=== PATIENT | male | born 1985 | race Caucasian/White ===

== ENCOUNTER 2022-09-04 13:32 | Emergency (ER) | payer OTHER, SELFPAY ==
[2022-09-04 14:47] VITALS: BP 145/96; PULSE 82; RESP 16; TEMP 36.1; O2SAT 98; BMI 21.7
--- NOTE | 2022-09-04 14:48 | ED.SKABFB ---
HPI - Skin/Abscess/Foreign Bdy General Chief complaint: General Medical <XAVIER Pride - Last Filed: 09/04/22 14:55> Stated complaint: bugs are crawling out of skin <XAVIER Pride - Last Filed: 09/04/22 14:55> Time Seen by Provider: 09/04/22 17:58 <XAVIER Pride - Last Filed: 09/04/22 14:55> Source: patient, family and old records reviewed <Olegario Griffin - Last Filed: 09/04/22 18:28> Limitations: no limitations <Olegario Griffin - Last Filed: 09/04/22 18:28> History of Present Illness HPI narrative: 37-year-old male with longstanding history of over 8 use disorder presents to the ER complaining that he feels like bugs are crawling on his skin and coming out of his mouth. Case discussed with mother at length patient does sniff heroin and has been on methadone and Suboxone in the past. Patient has also been to detox also in the past. Mother states the patient seemed to have lost more more we recently patient denies any history of HIV or hepatitis. Patient does state decreased p.o. intake recently. Patient states can use up to 15-20 minutes exam heroin a day. Mother states patient has also used cocaine in the past. Patient rents a room in . Patient also states in the past methadone has helped him more than Suboxone. At this time patient denies suicidal ideation mother states [facility] as to the was asking [place] is still alive. <Olgeario Griffin - Last Filed: 09/04/22 18:28> Related Data Allergies/Adverse reactions: Allergies Allergy/AdvReac Type Severity Reaction Status Date / Time No Known Allergies Allergy Verified 09/04/22 14:53 <XAVIER Pride - Last Filed: 09/04/22 14:55> Review of Systems Review of Systems: General: No fever, positive chills Ophthalmology: No vision changes ENT: No sore throat, no ear pain Cardiovascular, no chest pain, no peripheral edema no shortness of breath Respiratory: No dyspnea, no sputum production, no cough Muscle skeletal: Positive malaise, no back pain, no neck pain, no extremity pain GI: No abdominal pain: Positive nausea no vomiting, no diarrhea Psychiatric: No depression, no suicidal ideation, no homicidal ideation Skin: No rash <Olegario Griffin - Last Filed: 09/04/22 18:28> FOR[facility]LY [facility] Past Medical History Attestation statement: The following information was validated with the patient. <Olegario Griffin - Last Filed: 09/04/22 18:28> Source: obtained from family <Olegario Griffin - Last Filed: 09/04/22 18:28> Social History Social History: Social History Advance Directives: No Advance Directives Information Provided: No <XAVIER Pride - Last Filed: 09/04/22 14:55> Physical Exam Vital Signs: Vital Signs: Last Vital Signs Temp 97 F 09/04/22 14:47 Pulse 82 09/04/22 14:47 Resp 16 09/04/22 14:47 BP 145/96 H 09/04/22 14:47 Pulse Ox 98 09/04/22 14:47 O2 Del Method Room Air 09/04/22 14:47 BMI result Body Mass Index 21.7 <XAVIER Pride - Last Filed: 09/04/22 14:55> Vital Signs: Last Vital Signs Temp 97 F 09/04/22 14:47 Pulse 82 09/04/22 14:47 Resp 16 09/04/22 14:47 BP 145/96 H 09/04/22 14:47 Pulse Ox 98 09/04/22 14:47 O2 Del Method Room Air 09/04/22 14:47 BMI result Body Mass Index 21.7 <Olegario Griffin - Last Filed: 09/04/22 18:28> Vital Signs: Last Vital Signs Temp 97 F 09/04/22 14:47 Pulse 82 09/04/22 14:47 Resp 16 09/04/22 14:47 BP 145/96 H 09/04/22 14:47 Pulse Ox 98 09/04/22 14:47 O2 Del Method Room Air 09/04/22 14:47 BMI result Body Mass Index 21.7 <Brock Rosado - Last Filed: 09/04/22 20:02> General appearance: Patient is cachectic in appearance, slightly anxious but cooperative Skin: Warm, dry, no rash Eyes: PERRL, EOMI ENT: Oropharynx is clear mucosa is dry Neck: Soft supple full range of motion Pulmonary: Breath sounds are diminished but otherwise clear no accessory muscle use Cardiovascular: Regular rate and rhythm no murmurs and rubs Abdomen: Abdomen flat soft no rebound or guarding positive bowel sounds Extremities: No deformity, nontender, no peripheral edema noted, bilateral calves nontender Neuro: Patient is alert and oriented no focal deficit Psych: Withdrawn <Olegario Griffin - Last Filed: 09/04/22 18:28> Course Course Course Narrative: RME: 37yo M w/no sig pmhx c/o bugs crawling all over him, hair, nose, fingers and in his mouth since yesterday. admits sx are intermittent. Admits to using heroin, denies other drugs Nothing noted on exam, no evidence of scabies, no rash Labs, UA, CARLOS, CARE consult ordered Full HPI, ROS and PE to be performed by primary ED provider. <XAVIER Pride - Last Filed: 09/04/22 14:55> Reevaluation(s) Reevaluation #1: Patient received in sign-out pending care team evaluation and disposition. Likely plan for detox. The patient is here voluntarily. He is requesting discharge at this time. He states that he has outpatient resources and his mother works for [employer]. The patient is awake, and oriented to person place and time. He is not a section is here voluntarily. I will discharge the patient per his request <Brock Rosado - Last Filed: 09/04/22 20:02> Time: 20:01 <Brock Rosado - Last Filed: 09/04/22 20:02> Medical Decision Making Medical Decision Making MDM Narrative: Opiate use disorder Visual hallucinations Opiate withdrawal Depression Malnutrition 37-year-old male with a longstanding history of opiate use disorder presents with mother with increased agitation and visual hallucinations of bugs crawling out of his skin. Patient has had some nausea denies vomiting. Last used heroin this morning. Patient states he only says heroin. Denies history of HIV hepatitis. Patient does admit to decreased p.o. intake. Care team is aware of patient and will evaluate CBC CMP U tox ETOH level Patient signed out to Brock Rosado PA-C <Olegario Griffin - Last Filed: 09/04/22 18:28> Lab Data Result Diagrams: 09/04/22 18:48 09/04/22 18:48 <XAVIER Pride - Last Filed: 09/04/22 14:55> Labs: Lab Results 09/04/22 09/04/22 09/04/22 Range/Units 18:48 18:48 18:48 WBC 5.6 (4.8-10.8) X10*3/uL RBC 4.33 L (4.60-5.80) X10*6/uL Hgb 13.1 L (14.0-18.0) g/dl Hct 37.9 L (42.0-52.0) % MCV 87.5 (80.0-98.0) fL MCH 30.3 (27.0-33.0) pg MCHC 34.6 (31.0-36.0) g/dl RDW 13.2 (11.0-16.0) % Plt Count 287 (160-400) X10*3/uL MPV 9.1 L (9.4-12.4) fL Immature Gran % (Auto) 0.2 (0.0-0.4) % Neut % (Auto) 42.2 L (45-73) % Lymph % (Auto) 38.2 (20-40) % Hartley % (Auto) 11.1 H (2-11) % Eos % (Auto) 7.0 H (0-4) % Baso % (Auto) 1.3 (0-2) % Lymph # (Auto) 2.1 (1.2-4.9) X10*3/uL Hartley # (Auto) 0.6 (0.1-1.2) X10*3/uL Eos # (Auto) 0.4 (0.0-0.4) X10*3/uL Baso # (Auto) 0.1 (0.0-0.2) X10*3/uL Abs Immat Gran (auto) 0.01 (0.00-0.03) X10*3/uL Absolute Neuts (auto) 2.4 (2.0-8.3) x10*3/uL Absolute Nucleated RBC 0.000 (0.0-0.012) X10*3/uL Nucleated RBC % (auto) 0.0 (0.0-0.2) /100WBC Sodium 140 (135-145) mmol/L Potassium 3.9 (3.3-5.1) mmol/L Chloride 103 (96-108) mmol/L Carbon Dioxide 31 H (22-29) mmol/L Anion Gap 10 L (12-20) BUN 11 (9-16) mg/dL Creatinine 0.75 (0.5-1.4) mg/dL Estim Creat Clear Calc 114.5 Estimated GFR > 60 Random Glucose 124 H (60-115) mg/dL Calcium 9.6 (8.4-10.2) mg/dL Magnesium 2.3 (1.6-2.6) mg/dL Total Bilirubin 0.6 (0.0-1.0) mg/dL Direct Bilirubin 0.2 (0.0-0.5) mg/dL AST 14 (5-37) U/L ALT 6 (0-40) U/L Alkaline Phosphatase 52 (39-117) U/L Total Protein 6.1 L (6.5-8.0) g/dL Albumin 4.2 (3.5-5.0) g/dL Ethyl Alcohol < 10 mg/dL <XAVIER Pride - Last Filed: 09/04/22 14:55> Lab Results 09/04/22 09/04/22 09/04/22 Range/Units 18:48 18:48 18:48 WBC 5.6 (4.8-10.8) X10*3/uL RBC 4.33 L (4.60-5.80) X10*6/uL Hgb 13.1 L (14.0-18.0) g/dl Hct 37.9 L (42.0-52.0) % MCV 87.5 (80.0-98.0) fL MCH 30.3 (27.0-33.0) pg MCHC 34.6 (31.0-36.0) g/dl RDW 13.2 (11.0-16.0) % Plt Count 287 (160-400) X10*3/uL MPV 9.1 L (9.4-12.4) fL Immature Gran % (Auto) 0.2 (0.0-0.4) % Neut % (Auto) 42.2 L (45-73) % Lymph % (Auto) 38.2 (20-40) % Hartley % (Auto) 11.1 H (2-11) % Eos % (Auto) 7.0 H (0-4) % Baso % (Auto) 1.3 (0-2) % Lymph # (Auto) 2.1 (1.2-4.9) X10*3/uL Hartley # (Auto) 0.6 (0.1-1.2) X10*3/uL Eos # (Auto) 0.4 (0.0-0.4) X10*3/uL Baso # (Auto) 0.1 (0.0-0.2) X10*3/uL Abs Immat Gran (auto) 0.01 (0.00-0.03) X10*3/uL Absolute Neuts (auto) 2.4 (2.0-8.3) x10*3/uL Absolute Nucleated RBC 0.000 (0.0-0.012) X10*3/uL Nucleated RBC % (auto) 0.0 (0.0-0.2) /100WBC Sodium 140 (135-145) mmol/L Potassium 3.9 (3.3-5.1) mmol/L Chloride 103 (96-108) mmol/L Carbon Dioxide 31 H (22-29) mmol/L Anion Gap 10 L (12-20) BUN 11 (9-16) mg/dL Creatinine 0.75 (0.5-1.4) mg/dL Estim Creat Clear Calc 114.5 Estimated GFR > 60 Random Glucose 124 H (60-115) mg/dL Calcium 9.6 (8.4-10.2) mg/dL Magnesium 2.3 (1.6-2.6) mg/dL Total Bilirubin 0.6 (0.0-1.0) mg/dL Direct Bilirubin 0.2 (0.0-0.5) mg/dL AST 14 (5-37) U/L ALT 6 (0-40) U/L Alkaline Phosphatase 52 (39-117) U/L Total Protein 6.1 L (6.5-8.0) g/dL Albumin 4.2 (3.5-5.0) g/dL Ethyl Alcohol < 10 mg/dL <Olegario Griffin - Last Filed: 09/04/22 18:28> Lab Results 09/04/22 09/04/22 09/04/22 Range/Units 18:48 18:48 18:48 WBC 5.6 (4.8-10.8) X10*3/uL RBC 4.33 L (4.60-5.80) X10*6/uL Hgb 13.1 L (14.0-18.0) g/dl Hct 37.9 L (42.0-52.0) % MCV 87.5 (80.0-98.0) fL MCH 30.3 (27.0-33.0) pg MCHC 34.6 (31.0-36.0) g/dl RDW 13.2 (11.0-16.0) % Plt Count 287 (160-400) X10*3/uL MPV 9.1 L (9.4-12.4) fL Immature Gran % (Auto) 0.2 (0.0-0.4) % Neut % (Auto) 42.2 L (45-73) % Lymph % (Auto) 38.2 (20-40) % Hartley % (Auto) 11.1 H (2-11) % Eos % (Auto) 7.0 H (0-4) % Baso % (Auto) 1.3 (0-2) % Lymph # (Auto) 2.1 (1.2-4.9) X10*3/uL Hartley # (Auto) 0.6 (0.1-1.2) X10*3/uL Eos # (Auto) 0.4 (0.0-0.4) X10*3/uL Baso # (Auto) 0.1 (0.0-0.2) X10*3/uL Abs Immat Gran (auto) 0.01 (0.00-0.03) X10*3/uL Absolute Neuts (auto) 2.4 (2.0-8.3) x10*3/uL Absolute Nucleated RBC 0.000 (0.0-0.012) X10*3/uL Nucleated RBC % (auto) 0.0 (0.0-0.2) /100WBC Sodium 140 (135-145) mmol/L Potassium 3.9 (3.3-5.1) mmol/L Chloride 103 (96-108) mmol/L Carbon Dioxide 31 H (22-29) mmol/L Anion Gap 10 L (12-20) BUN 11 (9-16) mg/dL Creatinine 0.75 (0.5-1.4) mg/dL Estim Creat Clear Calc 114.5 Estimated GFR > 60 Random Glucose 124 H (60-115) mg/dL Calcium 9.6 (8.4-10.2) mg/dL Magnesium 2.3 (1.6-2.6) mg/dL Total Bilirubin 0.6 (0.0-1.0) mg/dL Direct Bilirubin 0.2 (0.0-0.5) mg/dL AST 14 (5-37) U/L ALT 6 (0-40) U/L Alkaline Phosphatase 52 (39-117) U/L Total Protein 6.1 L (6.5-8.0) g/dL Albumin 4.2 (3.5-5.0) g/dL Ethyl Alcohol < 10 mg/dL <Brock Rosado - Last Filed: 09/04/22 20:02> Discharge Plan Discharge Clinical Impression: Opiate use, Hallucination, visual <XAVIER Pride - Last Filed: 09/04/22 14:55> Patient Disposition: Home, Self-Care <XAVIER Pride - Last Filed: 09/04/22 14:55> Instructions: Opioid Use Disorder (ED) <XAVIER Pride - Last Filed: 09/04/22 14:55> Additional Instructions: Return for any new or worsening concerns. <XAVIER Pride - Last Filed: 09/04/22 14:55>
--- OUTSIDE RECORDS SUMMARY | 2022-09-04 17:16 | XMS_ITS | Continuity of Care Document ---
Author Name Unknown Organization [facility] ter Address [address] [place] [id number] Care Team Providers Care Wedding Florist Name Role Phone Not on Staff, PCP Primary Care Physician Unavail able Encounter [facility] Date(s): 04/30/19 - 05/01/[address] [id number]- [facility] Encounter Diagnosis Depression(Final) - 05/01/19 Discharge Disposition: A-D/C Home Attending Physician: Duke Jalloh MD Admitting Physician: Duke Jalloh MD Referring Physician: Not on Staff, Referring MD Allergies, Adverse Reactions, Alerts Substance Reaction Severity Status NKA Active Vital Signs Most recent to oldest [Reference Range]: 1 2 Height 167 cm (05/01/19 6:36 AM) 167 cm (04/30/19 9:54 PM) Weight 63.5 kg (05/01/19 6:36 AM) 63.5 kg (04/30/19 9:54 PM) Oxygen Saturation [94-100 %] 100 % (05/01/19 6:36 AM) 99 % (04/30/19 9:25 PM) Pulse Rate [55-90 bpm] 101 bpm *H* (05/01/19 6:36 AM) 85 bpm (04/30/19 9:25 PM) Body Mass Index [18.5-24.99] 22.77 (05/01/19 6:36 AM) Blood Pressure [90-138/55-84 mm Hg] 117/ 63mm Hg (05/01/19 6:36 AM) 145/95mm Hg *H* (04/30/19 9:25 PM) Respiratory Rate [16-30 br/min] 16 br/mi n (05/01/19 6:36 AM) 16 br/min (04/30/19 9:25 PM) Temperature [96.8-100.4 DegF] 97.7 DegF (05/01/19 6:36 AM) 98.0 DegF (04/30/19 9:25 PM) Mode of Delivery (Oxygen) Room air (05/01/19 6:36 AM) Room air (04/30/19 9:25 PM) Blood pressure sites Arm, right (05/01/19 6:36 AM) Arm, right (04/30/19 9:25 PM) Temperature Route Oral (05/01/19 6:36 AM) Oral (04/30/19 9:25 PM) Dry Weight 63.5 kg (05/01/19 6:36 AM) 63.5 kg (04/30/19 9:54 PM)
[2022-09-04 18:52] LABS: MANUAL DIFF FLAG NO
[2022-09-04 19:03] LABS: Basophils Absolute Auto 0.1 X10*3/uL (0.0-0.2); Basophils Percent Auto 1.3 % (0-2); Eosinophils Absolute Auto 0.4 X10*3/uL (0.0-0.4); Hematocrit 37.9 % (42.0-52.0); Hemoglobin 13.1 g/dl (14.0-18.0); Imm Gran Abs Auto 0.01 X10*3/uL (0.00-0.03); Imm Gran Pct Auto 0.2 % (0.0-0.4); Lymphocytes Absolute Auto 2.1 X10*3/uL (1.2-4.9); Lymphocytes Percent Auto 38.2 % (20-40); Mean Corpuscular HGB Conc 34.6 g/dl (31.0-36.0); Mean Corpuscular Hemoglobin 30.3 pg (27.0-33.0); Mean Corpuscular Volume 87.5 fL (80.0-98.0); Mean Platelet Volume 9.1 fL (9.4-12.4); Monocytes Absolute Auto 0.6 X10*3/uL (0.1-1.2); Monocytes Percent Auto 11.1 % (2-11); Neutrophils Absolute Auto 2.4 x10*3/uL (2.0-8.3); Neutrophils Percent Auto 42.2 % (45-73); Platelet Count 287 X10*3/uL (160-400); Red Blood Count 4.33 X10*6/uL (4.60-5.80); Red Cell Distribution Width 13.2 % (11.0-16.0); White Blood Count 5.6 X10*3/uL (4.8-10.8)
[2022-09-04 19:08] LABS: Alanine Aminotransferase 6 U/L (0-40); Albumin Level 4.2 g/dL (3.5-5.0); Alkaline Phosphatase 52 U/L (39-117); Anion Gap 10 (12-20); Aspartate Amino Transferase 14 U/L (5-37); Bilirubin Direct 0.2 mg/dL (0.0-0.5); Bilirubin Total 0.6 mg/dL (0.0-1.0); Blood Urea Nitrogen 11 mg/dL (9-16); Calcium 9.6 mg/dL (8.4-10.2); Carbon Dioxide 31 mmol/L (22-29); Chloride 103 mmol/L (96-108); Creatinine Clr Calc Pharmacy 114.5; Estimated Glomerular Filt Rate > 60; Glucose Random 124 mg/dL (60-115); Magnesium 2.3 mg/dL (1.6-2.6); Potassium 3.9 mmol/L (3.3-5.1); Sodium 140 mmol/L (135-145); Total Protein 6.1 g/dL (6.5-8.0)
[2022-09-04 19:09] LABS: Ethanol < 10 mg/dL
[2022-09-04 20:00] VITALS: BP 132/78; PULSE 97; RESP 18; TEMP 37.1; O2SAT 99
== END 2022-09-04 20:33 | disposition home or self-care (01) ==
PROVIDERS: Physician Assistant; Emergency Provider Emergency Medicine
DX: F11.951 Opioid use, unspecified with opioid-induced psychotic disorder with hallucinations (principal); R44.1 Visual hallucinations; R45.1 Restlessness and agitation; B20 Human immunodeficiency virus [HIV] disease
CPT/HCPCS: 36415; 80048; 80076; 82077; 83735; 85025; 99283

== ENCOUNTER 2022-09-17 08:19 | Emergency (ER) | payer OTHER, SELFPAY ==
[2022-09-17 08:45] VITALS: BP 140/94; PULSE 92; RESP 16; TEMP 36.7; O2SAT 98; BMI 21.0
[2022-09-17 08:56] VITALS: PULSE 91; RESP 16; O2SAT 97
--- NOTE | 2022-09-17 09:00 | PC.NURSE ---
Pt on stretcher, airway open and patent, no obvious signs of distress, no difficulty/labored breathing, equal chest rise and fall. Pt a&ox4, skin normal for ethnicity, warm, and dry. Pt complaining of itchiness in feet and head. Pt reports that he was just here about a week ago for the same complaint, but nothing was found. Pt reports that he bought lice shampoo last night and when he washed his hair, he saw little black things on the bottom of the tub.
--- NOTE | 2022-09-17 09:08 | ED.GENADULT ---
HPI - General Adult General Chief complaint: General Medical Stated complaint: Lice? Time Seen by Provider: 09/17/22 08:34 Source: patient, RN notes reviewed and old records reviewed Mode of arrival: ambulatory History of Present Illness HPI narrative: 37-year-old male with a past medical history of opiate abuse presenting to the ED complaining of suspected lice/bugs in hair, fingernails, and toes/feet x few weeks. Patient reports he is pruritic. Admits was seen at the ED recently for similar symptoms which was suspected to be secondary to opiate use. Last used heroin yesterday per patient. Denies new exposures, recent travel, fever/chills, SOB/CP, SI/HI, auditory/visual hallucinations Onset (ago): week(s) Related Data Previous Rx's Medication Instructions Recorded permethrin 1 % topical liquid 30 ml topical ONCE #59 mL 09/17/22 (Lice Killing (permethrin)) permethrin 5 % topical cream 1 appl topical Q14D 2 doses #60 09/17/22 grams Allergies Allergy/AdvReac Type Severity Reaction Status Date / Time No Known Allergies Allergy Verified 09/17/22 08:44 Review of Systems Review of Systems: Constitutional: No Fever, No Chills, No Fatigue, No Malaise ENT/Mouth: o Ear Pain, No sore throat, No Rhinorrhea, No Swallowing Difficulty Eyes: No Eye Pain, No Swelling, No Redness, No Vision Changes Cardiovascular: No Chest Pain, No SOB Respiratory: No Cough, No Sputum, No Dyspnea Gastrointestinal: No Nausea, No Vomiting, No Abdominal pain Musculoskeletal: No joint pain, No Myalgias, No Joint Swelling Skin: + Skin Lesions, No rash Neuro: No Weakness, No Numbness, No Paresthesias, No Headache Psych: No Anxiety/Panic, No Depression, No SI/HI/AH/VH, No Social Issues Yes all other systems are reviewed and are negative Constitutional: Constitutional: Reports as per [facility] Past Medical History Attestation statement: The following information was validated with the patient. Source: old records reviewed Social History Social History Alcohol intake: never Smoked in Last 30 Days: Yes Use of substances other than those prescribed or required for medical reasons: Yes Substance Use Type: Crack/Cocaine, Heroin and Marijuana Substance Use Frequency: Chronic Longstanding Last Used Substance: Hours (ago) Advance Directives: No Physical Exam ED Vital Signs: Vital Signs - 24 hr 09/17/22 08:45 09/17/22 08:56 Temperature 98.0 F Pulse Rate 92 91 Respiratory Rate 16 16 Blood Pressure 140/94 H Pulse Oximetry 98 97 Oxygen Delivery Method Room Air Room Air BMI result Body Mass Index 21.0 Const General: cooperative, healthy appearing, no acute distress, alert and awake Orientation/consciousness: patient oriented x3 Limitations: no limitations HENMT Head: Yes normal to inspection and Yes atraumatic Ears: hearing grossly normal bilaterally General nose exam: Normal external nose present Face and sinus: Yes normal facial exam Eyes General: appearance normal, both eyes and all related structures EOM: EOMs intact bilaterally Neck Neck: Yes normal visual inspection and Yes no meningeal signs Resp Effort & Inspection: normal respiratory effort and no respiratory distress Cardio Rate: regular rate GI Inspection: Yes normal to inspection Skin Other: No appreciable lice/nits to hair. No appreciable rash/excoriations. No petechiae or mucous membrane involvement. + bilateral plantar aspect feet with small darkened circles. No burrowing, no pustules, no scaling General skin exam: no rashes or lesions noted Lesions: no lesions Rashes: no rashes Wounds: no wounds Hair: normal Nails: normal Neuro General: patient oriented x3, gait normal, tone normal, moves all extremities, no meningeal signs, no focal motor deficits and CN's II-XI intact bilaterally Gait exam (Neuro): Normal gait present Extrem General: Yes normal to inspection Medical Decision Making Medical Decision Making MDM Narrative: 37-year-old male with a past medical history of opiate abuse presenting to the ED complaining of suspected lice/bugs in hair, fingernails, and toes/feet x few weeks. On exam vital signs stable, NAD, nontoxic appearing, no appreciable rashes/lice or burrowing. No mucous membrane or palm involvement. Bilateral soles with darkened areas, no scaling. Concern for opiate induced pruritis/hallucinations. Low suspicion for life/scabies, no evidence of tinea, SJS or TENS Plan: Will treat with permethrin and dermatology consult Please refer to course for remaining clinical decision making, interpretation of labs/imaging results, and discussions with consultants and/or family members. Differential Diagnosis Differential Diagnoses: The differential diagnosis associated with the presentation includes As above Lab Data MDM Lab Attestation statement: I reviewed the patient's lab results. Radiology Impression Discussion of test interpretation with radiology: I have reviewed the radiologist's reading. External Record Review External record reviewed: Inpatient record, Office record, Outpatient record, Prior outpatient labs, Prior outpatient radiology, Primary care record and Outside ED record Tests considered The following testing was considered but not selected: As above Discharge Plan Discharge Clinical Impression: Itching Patient Disposition: Home, Self-Care Instructions: Itchy Skin (ED) Additional Instructions: Permethrin will treat possible lice or scabies. Please apply as prescribed He need to follow-up with your doctor in dermatology Your symptoms are likely related to your drug use, avoid drug and alcohol use If symptoms persist or worsen return to the ED Prescriptions: New permethrin 5 % cream 1 appl topical Q14D Qty: 60 0RF Rx Instructions: apply second treatment 14 days after first treatment if live lice remain Lice Killing (permethrin) 1 % liquid 30 ml topical ONCE Qty: 59 0RF Rx Instructions: Prior to application, wash hair with conditioner-free shampoo; rinse with water and towel dry. Apply a sufficient amount of lotion or cream rinse to saturate the hair and scalp (especially behind the ears and nape of neck). Leave on hair for 10 minutes (but no longer), then rinse off with warm water; remove remaining nits with nit comb. A single application is generally sufficient; however, may repeat 7 days after first treatment if lice or nits are still present Referrals: Fely Carmona PA [Physician [employer] Supervisor] - Vinod Ochoa MD [Physician] - Miguel Garnica MD [Physician] - Judah Wynne FNP-JAXSON [Nurse Practitioner] - Brigitte Landaverde PA-C [Physician [employer] Treatment [employer] Supervisor] - Physician,None [Primary Care Provider] - Stand Alone Forms: Work/School Release Interventions: ED Discharge Assessment Last Done: 09/17/22 10:09 Discharge Date/Time: 09/17/22 10:10
== END 2022-09-17 10:10 | disposition home or self-care (01) ==
PROVIDERS: Emergency Provider Emergency Medicine
DX: B85.2 Pediculosis, unspecified (principal)
CPT/HCPCS: 99283; 99284

== ENCOUNTER 2022-10-21 04:19 | Emergency (ER) | payer OTHER, SELFPAY ==
[2022-10-21 04:28] VITALS: BP 162/90; PULSE 114; RESP 20; O2SAT 98; BMI 21.0
--- NOTE | 2022-10-21 04:32 | ED_ITS ---
HPI - Skin/Abscess/Foreign Bdy General Chief complaint: Skin/Abscess/Foreign Body Stated complaint: chills Time Seen by Provider: 10/21/22 04:29 Source: patient Mode of arrival: ambulatory Limitations: no limitations History of Present Illness HPI narrative: Patient complaining of bugs on his body for last few months been here multiple times for same numbers were seen on previous visits patient seems to be anxious unhealthy any itching all over the body has taken a course of permethrin on 09/17/2022 Related Data Previous Rx's Medication Instructions Recorded permethrin 1 % topical liquid 30 ml topical ONCE #59 mL 09/17/22 (Lice Killing (permethrin)) permethrin 5 % topical cream 1 appl topical Q14D 2 doses #60 09/17/22 grams diphenhydramine HCl 25 mg capsule 25 mg PO TID PRN itching #14 caps 10/21/22 (Benadryl) Allergies Allergy/AdvReac Type Severity Reaction Status Date / Time No Known Allergies Allergy Verified 09/17/22 08:44 Review of Systems Review of Systems: Yes all other systems are reviewed and are negative [facility] Social History Social History Alcohol intake: never Substance Use Type: Crack/Cocaine, Heroin and Marijuana Physical Exam Vital Signs: Vital Signs: Last Vital Signs Pulse 114 H 10/21/22 04:28 Resp 20 10/21/22 04:28 BP 162/90 H 10/21/22 04:28 Pulse Ox 98 10/21/22 04:28 O2 Del Method Room Air 10/21/22 04:28 BMI result Body Mass Index 21.0 Appearance: Alert. Oriented X3. No acute distress. Anxious unkept condition Eyes: PERRLA, No Nystagmus ENT: Pharynx normal. Oral Mucosa moist Neck: Normal inspection. Neck supple. CVS: Normal heart rate and rhythm. Pulses normal. Respiratory: No respiratory distress. Equal air entry bilateral, Abdomen: Soft and nontender. Skin: Skin warm and dry. Normal skin color. Normal skin turgor. No signs of scabies seen no bugs were seen Extremities: No lower extremity edema. No calf tenderness Neuro: Oriented X 3. Medical Decision Making Medical Decision Making MDM Narrative: Patient with anxiety no signs of infestation seen patient reassured and was given a prescription of Benadryl advised to follow with ID if needed Discharge Plan Discharge Clinical Impression: Anxiety, Itching Patient Disposition: Home, Self-Care Instructions: Anxiety (ED), Itchy Skin (ED) Additional Instructions: Follow-up with infectious disease specialist/PCP Take Benadryl 1 tablet every 6-8 hours for itching Prescriptions: New diphenhydramine HCl [Benadryl] 25 mg capsule 25 mg PO TID PRN (Reason: itching) Qty: 14 0RF No Action permethrin 5 % cream 1 appl topical Q14D Qty: 60 0RF Rx Instructions: apply second treatment 14 days after first treatment if live lice remain Lice Killing (permethrin) 1 % liquid 30 ml topical ONCE Qty: 59 0RF Rx Instructions: Prior to application, wash hair with conditioner-free shampoo; rinse with water and towel dry. Apply a sufficient amount of lotion or cream rinse to saturate the hair and scalp (especially behind the ears and nape of neck). Leave on hair for 10 minutes (but no longer), then rinse off with warm water; remove remaining nits with nit comb. A single application is generally sufficient; however, may repeat 7 days after first treatment if lice or nits are still present Referrals: Lelo Jacobsen MD [Physician] - 2 weeks Stand Alone Forms: Work/School Release
[2022-10-21] MEDS: diphenhydrAMINE HCL 25 MG CAPSULE PO (04:35)
--- NOTE | 2022-10-21 04:38 | PC.NURSE ---
Reviewed discharge instructions with pt. pt verbalized understanding. no sign of distress.
== END 2022-10-21 04:40 | disposition home or self-care (01) ==
LOC: HO.ED 04:36
PROVIDERS: Emergency Provider Internal Medicine
DX: L29.9 Pruritus, unspecified (principal)
CPT/HCPCS: 99282; 99283

== ENCOUNTER 2022-11-03 02:22 | Emergency (ER) | payer OTHER, SELFPAY ==
[2022-11-03 02:42] VITALS: BP 149/108; PULSE 119; RESP 18; TEMP 37; O2SAT 97; BMI 21.0
--- NOTE | 2022-11-03 02:59 | PC.NURSE ---
Pt sts for past 4 months he has been finding small black, white and brown balls in [his] hair and ibanez . Pt able to produce what appears to be dirt particulates when examined by this RN. 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 On direct exam, this RN found no living matter in hair or in ibanez. Pt denies pain at this time.
== END 2022-11-03 03:29 | disposition left against medical advice (07) ==
PROVIDERS: Emergency Provider Emergency Medicine
DX: R51.9 Headache, unspecified (principal)
CPT/HCPCS: 99282; 99284

== ENCOUNTER 2024-10-30 11:34 | Emergency (ER) | payer OTHER, SELFPAY ==
[2024-10-30 11:55] VITALS: BP 154/87; PULSE 97; RESP 18; TEMP 36.9; O2SAT 97; BMI 18.3
--- NOTE | 2024-10-30 11:57 | ED_ITS ---
HPI - Dental/Oral General Chief complaint: Dental/Oral Stated complaint: Dental Infection Dizzy Vomiting Time Seen by Provider: 10/30/24 14:12 Source: patient and RN notes reviewed Mode of arrival: ambulatory Limitations: no limitations History of Present Illness ED Provider: Ameena Escalante PA-C HPI Narrative: This is a [id number] who presents to the ER with complaints of dental pain x 3 days. Reports that he also has had dizziness and had an episode of vomiting this afternoon while he was in the heat. He states that he is feeling much better now that he has been resting in the ED's waiting room. No fevers. He does not have a dentist. No CP or SOB. No difficulty swallowing. No other complaints or concerns at this time. MD Complaint: tooth pain Onset (ago): day(s) Duration: constant Relieving factors: nothing Exacerbating factors: chewing, cold, heat and drinking fluids Context: poor dental care Treatment prior to arrival: none Related Data Previous Rx's ?Medication ?Instructions ?Recorded permethrin 1 % topical liquid 30 ml topical ONCE #59 m L 09/17/22 (Lice Killing (permethrin)) permethrin 5 % topical cream 1 appl topical Q14D 2 dos es #60 09/17/22 grams diphenhydramine HCl 25 mg capsule 25 mg PO TID PRN itc meli #14 caps 10/21/22 (Benadryl) acetaminophen 500 mg tablet 500 - 1,000 mg (1 - 2 x 50 0 mg) PO 10/30/24 (Tylenol Extra Strength) Q8H PRN pain #30 tabs amoxicillin 875 mg-potassium 1 tab PO BID 10 days #20 tabs 10/30/24 clavulanate 125 mg tablet ibuprofen 600 mg tablet 600 mg PO Q6H PRN pain #30 t abs 10/30/24 Allergies Allergy/AdvReac Type Severity Reaction Status Date / Time No Known Allergies Allergy Verified 10/30/24 11:58 Review of Systems 2 Review of Systems: Yes all other systems are reviewed and are negative Constitutional: Constitutional: Reports as per HPI [facility] Social History Social History Alcohol intake: never Substance Use Type: Crack/Cocaine, Heroin and Marijuana Advance Directives: No Advance Directives Information Provided: Yes Physical Exam 2 Vital Signs: Vital Signs: Last Vital Signs Temp 97.9 F 10/30/24 14:43 Pulse 87 10/30/24 14:43 Resp 18 10/30/24 14:43 BP 136/93 H 10/30/24 14:43 Pulse Ox 98 10/30/24 14:43 O2 Del Method Room Air 10/30/24 14:43 BMI result Body Mass Index 18.3 Const: General: cooperative, comfortable and no acute distress O rientation/consciousness: patient oriented x3 Limitations: no limitations HEENT: Other: Poor dentition throughout, significant dental decay on right lower jaw line with TTP overlying tooth number 6. No fluctuance, induration of gum. No trismus, drooling or dysphonia, no facial swelling appreciated. Head: Yes normal to inspection, Yes normocephalic and Yes atraumatic E ars: hearing grossly normal bilaterally General nose exam: Normal external nose present Face and sinus: Yes normal facial exam Mouth: Normal oral and palatal mucosa present, oropharynx normal and moist mucous membranes Throat: Yes posterior oropharynx normal Eyes: General: appearance normal, both eyes and all related structures E yelids: Yes eyelids normal Conjunctivae: conjunctivae normal Sclerae: s clerae normal Pupils: Equal, round and reactive pupils present EOM: EOMs intact bilaterally Neck: Neck: Yes normal visual inspection, Yes full ROM and Yes no lymphadenopathy Lymphatic: no lymphadenopathy noted Chest: Chest palpation & inspection: normal inspection of the chest Resp: Effort & Inspection: normal respiratory effort and able to speak in complete sentences Auscultation: clear to auscultation bilaterally, no crackles, no rales, no rhonchi and no wheezes Cardio: Rate: regular rate Rhythm: regular rhythm Heart sounds: S1 normal heart sound present and S2 normal heart sound present GI: Inspection: Yes normal to inspection Skin: General skin exam: no rashes or lesions noted Trauma: no lacerations or abrasions Wounds: no wounds Neuro: General: patient oriented x3 and moves all extremities Cranial nerves: Yes Equal, round and reactive pupils present Extrem: General: Yes normal to inspection Right upper extremity: normal to inspection Left upper extremity: normal to inspection Right lower extremity: normal to inspection Left lower extremity: normal to inspection Medical Decision Making Medical Decision Making MDM Narrative: This is a 39 y/o M here with dental pain. AAlso reports that the had an episode of dizziness and vomiting while he was outside in the heat earlier today. He is feeling much better. On arrival, VSS. Labs were obtained revealing no significant process. EKG performed which revealed no acute ischemia. Patient was waiting for severall hours and is feeling much bettter. I discussed with patient that we should obtain othostatic vital signs as he may need fluids however patient states that he is now feeling mucch better, and would like to be d/c. D/c on antibiotics, given return precautions. Pt stable for d.c. Differential Diagnosis Differential Diagnoses: The differential diagnosis associated with the presentation includes dental abscess, decay, caries, facial pain Admission/Observation Consideration of admission/observation: Escalation of care including admission/observation considered Lab Data [facility] Lab Attestation statement: I reviewed the patient's lab results. see [facility] 10/30/24 12:39 10/30/24 12:39 Labs: Lab Results 10/30/24 Range/Units 12:39 WBC 9.0 (4.8-10.8) X10*3/uL RBC 4.54 L (4.60-5.80) X10*6/uL Hgb 13.7 L (14.0-18.0) g/dl Hct 39.8 L (42.0-52.0) % MCV 87.7 (80.0-98.0) fL MCH 30.2 (27.0-33.0) pg MCHC 34.4 (31.0-36.0) g/dl RDW 13.3 (11.0-16.0) % Plt Count 303 (160-400) X10*3/uL MPV 8.7 L (9.4-12.4) fL Immature Gran % (Auto) 0.3 (0.0-0.4) % Neut % (Auto) 80.6 H (45-73) % Lymph % (Auto) 9.9 L (20-40) % [place] % (Auto) 6.3 (2-11) % Eos % (Auto) 2.0 (0-4) % Baso % (Auto) 0.9 (0-2) % Lymph # (Auto) 0.9 L (1.2-4.9) X10*3/uL [place] # (Auto) 0.6 (0.1-1.2) X10*3/uL Eos # (Auto) 0.2 (0.0-0.4) X10*3/uL Baso # (Auto) 0.1 (0.0-0.2) X10*3/uL Abs Immat Gran (auto) 0.03 (0.00-0.03) X10*3/uL Absolute Neuts (auto) 7.2 (2.0-8.3) x10*3/uL Absolute Nucleated RBC 0.000 (0.0-0.012) X10*3/uL Nucleated RBC % (auto) 0.0 (0.0-0.2) /100WBC Sodium 140 (135-145) mmol/L Potassium 4.1 (3.3-5.1) mmol/L Chloride 107 (96-108) mmol/L Carbon Dioxide 28 (22-29) mmol/L Anion Gap 9 L (12-20) BUN 8 L (9-16) mg/dL Creatinine 0.75 (0.5-1.4) mg/dL Estim Creat Clear Calc 94.0 Estimated GFR > 60 Random Glucose 105 (60-115) mg/dL Calcium 9.3 (8.4-10.2) mg/dL Magnesium 2.2 (1.6-2.6) mg/dL Total Bilirubin 0.5 (0.0-1.0) mg/dL Direct Bilirubin 0.2 (0.0-0.5) mg/dL AST 44 H (5-37) U/L ALT 35 (0-40) U/L Alkaline Phosphatase 70 (39-117) U/L Troponin I High Sens < 2.7 (<3.5-35.0) ng/L Total Protein 6.6 (6.5-8.0) g/dL Albumin 4.4 (3.5-5.0) g/dL Independent Interpretation I performed an independent interpretation of an: EKG Interpretation: Vent. Rate : 82 BPM Atrial Rate : 82 BPM P-R Int : 114 ms QRS Dur : 94 ms QT Int : 418 ms P-R-T Axes : 63 79 52 degrees QTcB Int : 488 ms Normal sinus rhythm, no STEMI Discharge Plan Discharge Clinical Impression: Dental caries Patient Disposition: Home, Self-Care Instructions: Toothache (ED) Additional Instructions: You were seen in the emergency department due to dental pain. Please take prescribed antibiotic as directed, finish the entire course even if your symptoms improve. Alternate between ibuprofen and or Tylenol as needed for pain and symptoms. You need to call a dentist. If any new or worsening symptoms occur including but not limited to worsening pain, worsening dizziness, chest pain, shortness of breath, please seek emergent care. Prescriptions: New amoxicillin-pot clavulanate 875-125 mg tablet 1 tab PO BID 10 Days Qty: 20 0RF acetaminophen [Tylenol Extra Strength] 500 mg tablet 500 - 1,000 mg PO Q8H PRN (Reason: pain) Qty: 30 0RF ibuprofen 600 mg tablet 600 mg PO Q6H PRN (Reason: pain) Qty: 30 0RF No Action permethrin 5 % cream 1 appl topical Q14D Qty: 60 0RF Rx Instructions: apply second treatment 14 days after first treatment if live lice remain Lice Killing (permethrin) 1 % liquid 30 ml topical ONCE Qty: 59 0RF Rx Instructions: Prior to application, wash hair with conditioner-free shampoo; rinse with water and towel dry. Apply a sufficient amount of lotion or cream rinse to saturate the hair and scalp (especially behind the ears and nape of neck). Leave on hair for 10 minutes (but no longer), then rinse off with warm water; remove remaining nits with nit comb. A single application is generally sufficient; however, may repeat 7 days after first treatment if lice or nits are still present diphenhydramine HCl [Benadryl] 25 mg capsule 25 mg PO TID PRN (Reason: itching) Qty: 14 0RF Stand Alone Forms: Work/School Release Interventions: ED Discharge Assessment Last Done: 10/30/24 14:43 Discharge Date/Time: 10/30/24 14:44 Print Language: Finnish
--- NOTE | 2024-10-30 11:58 | ECG_ITS ---
Test Reason : dizziness Blood Pressure : */* mmHG Vent. Rate : 82 BPM Atrial Rate : 82 BPM P-R Int : 114 ms QRS Dur : 94 ms QT Int : 418 ms P-R-T Axes : 63 79 52 degrees QTcB Int : 488 ms Normal sinus rhythm Moderate voltage criteria for LVH, may be normal variant ( Sokolow-Lance , Steve product ) Prolonged QT Abnormal ECG No previous ECGs available Referred By: Ameena Escalante Electronically Signed By: JEAN CAMPBELL
[2024-10-30 12:44] LABS: MANUAL DIFF FLAG NO
[2024-10-30 12:46] LABS: Basophils Absolute Auto 0.1 X10*3/uL (0.0-0.2); Basophils Percent Auto 0.9 % (0-2); Eosinophils Absolute Auto 0.2 X10*3/uL (0.0-0.4); Hematocrit 39.8 % (42.0-52.0); Hemoglobin 13.7 g/dl (14.0-18.0); Imm Gran Abs Auto 0.03 X10*3/uL (0.00-0.03); Imm Gran Pct Auto 0.3 % (0.0-0.4); Lymphocytes Absolute Auto 0.9 X10*3/uL (1.2-4.9); Lymphocytes Percent Auto 9.9 % (20-40); Mean Corpuscular HGB Conc 34.4 g/dl (31.0-36.0); Mean Corpuscular Hemoglobin 30.2 pg (27.0-33.0); Mean Corpuscular Volume 87.7 fL (80.0-98.0); Mean Platelet Volume 8.7 fL (9.4-12.4); Monocytes Absolute Auto 0.6 X10*3/uL (0.1-1.2); Monocytes Percent Auto 6.3 % (2-11); Neutrophils Absolute Auto 7.2 x10*3/uL (2.0-8.3); Neutrophils Percent Auto 80.6 % (45-73); Platelet Count 303 X10*3/uL (160-400); Red Blood Count 4.54 X10*6/uL (4.60-5.80); Red Cell Distribution Width 13.3 % (11.0-16.0)
[2024-10-30 13:01] LABS: Alanine Aminotransferase 35 U/L (0-40); Albumin Level 4.4 g/dL (3.5-5.0); Alkaline Phosphatase 70 U/L (39-117); Anion Gap 9 (12-20); Aspartate Amino Transferase 44 U/L (5-37); Bilirubin Direct 0.2 mg/dL (0.0-0.5); Bilirubin Total 0.5 mg/dL (0.0-1.0); Blood Urea Nitrogen 8 mg/dL (9-16); Calcium 9.3 mg/dL (8.4-10.2); Carbon Dioxide 28 mmol/L (22-29); Chloride 107 mmol/L (96-108); Estimated Glomerular Filt Rate > 60; Glucose Random 105 mg/dL (60-115); Magnesium 2.2 mg/dL (1.6-2.6); Potassium 4.1 mmol/L (3.3-5.1); Sodium 140 mmol/L (135-145); Total Protein 6.6 g/dL (6.5-8.0)
[2024-10-30 13:13] LABS: Troponin-I High Sensitivity < 2.7 ng/L (<3.5-35.0)
[2024-10-30 14:12] VITALS: BP 136/93; PULSE 87; RESP 18; TEMP 36.6; O2SAT 98
[2024-10-30 14:43] VITALS: BP 136/93; PULSE 87; RESP 18; TEMP 36.6; O2SAT 98
== END 2024-10-30 14:44 | disposition home or self-care (01) ==
PROVIDERS: Physician Assistant Medical; Emergency Provider Emergency Medicine
DX: K02.9 Dental caries, unspecified (principal); R42 Dizziness and giddiness; R94.31 Abnormal electrocardiogram [ECG] [EKG]; R11.10 Vomiting, unspecified
CPT/HCPCS: 36415; 80048; 80076; 83735; 84484; 85025; 93005; 99283

== ENCOUNTER → 2024-10-30 11:58 | Outpatient (BNV) | payer OTHER, SELFPAY | PROVIDERS: Emergency Provider Emergency Medicine; Visit Provider Internal Medicine | DX: R94.31 Abnormal electrocardiogram [ECG] [EKG] (principal); R42 Dizziness and giddiness | CPT/HCPCS: 93010 ==